=== PATIENT | female | born 1970 | race Caucasian/White ===

== ENCOUNTER 2016-10-02 06:20 | Day surgery (SDC) | payer BC ==
[~2016-10-02 06:20] MED LIST: LIDOCAINE W/ SODIUM BICARB 0.5 ML SYR ONE; Lactated Ringers 2,000 ML PRIMARY IV ONE; Sodium Chloride 0.9% 100 ML IV ONE
[2016-10-02 06:37] LABS: BILIRUBIN,URINE NEGATIVE (NEG); COLOR,URINE YELLOW; GLUCOSE, URINE (UA) NEGATIVE (NEG); NITRATE,URINE NEGATIVE (NEG); OCCULT BLOOD,URINE Trace-intact (NEG); PROTEIN,URINE 30 mg/dl (NEG); UROBILINOGEN,URINE 0.2 EU/dL (0.2)
[2016-10-02 06:39] LABS: CLARITY,URINE CLEAR (CLEAR); URINE SAMPLE TYPE CLEAN CATCH URINE
[2016-10-02 06:43] LABS: BACTERIA,URINE FEW; SQUAMOUS EPITHELIAL CELL,UR FEW
[2016-10-02] MEDS ORDERED: BUPIVACAINE 0.25% W/ EPI - 10 ML VIAL ONE (06:49)
[2016-10-02 06:56] LABS: HEMATOCRIT 36.9 % (37.0-47.0); HEMOGLOBIN 11.3 g/dL (12.0-16.0)
[2016-10-02] MEDS ORDERED: LIDOCAINE MPF 2% - 5 ML (20 MG/1 ML) ONE (07:04)
[2016-10-02] MEDS ORDERED: ROCURONIUM 10 MG/1 ML - 5 ML VIAL IVP ONE (07:05)
[2016-10-02] MEDS ORDERED: MIDAZOLAM 5 MG/1 ML ONE (07:05)
[2016-10-02] MEDS ORDERED: KETAMINE 100 MG/1 ML - 5 ML ONE (07:05)
[2016-10-02] MEDS ORDERED: fentaNYL Inj 250 MCG/5 ML VIAL ONE (07:05)
[2016-10-02] MEDS ORDERED: ONDANSETRON 4 MG/2 ML VIAL ONE (07:34)
[2016-10-02] MEDS ORDERED: SCOPOLAMINE HYDROBROMIDE 1.5 MG - 1 EACH PATCH TRANSDERM ONE (07:34)
[2016-10-02] MEDS ORDERED: DEXAMETHASONE PF 10 MG/1 ML VIAL ONE (07:35)
[2016-10-02] MEDS ORDERED: Acetaminophen 1000mg Inj 100 ML IV ONE (07:35)
[2016-10-02] MEDS ORDERED: SUFENTANIL 50 MCG/1 ML ONE (08:15)
[2016-10-02] MEDS ORDERED: KETOROLAC 30 MG/1 ML VIAL ONE (08:29)
[2016-10-02] MEDS: Opium-Belladonna 60-16.2mg 1 EACH SUPP.RECT RECTAL ONE ×2 (08:41→09:03)
[2016-10-02] MEDS: LIDOCAINE HCL 2 % 10 ML JELLY URO-JECT TOPICAL ONE ×2 (08:41→09:06)
[2016-10-02] MEDS ORDERED: SUGAMMADEX SODIUM 200 MG/2 ML VIAL IV ONE (08:53)
[2016-10-02] MEDS ORDERED: KETOROLAC 30 MG/1 ML VIAL IVP PRN (09:27)
[2016-10-02] MEDS ORDERED: IBUPROFEN 800 MG TABLET PO PRN (09:27)
[2016-10-02] MEDS ORDERED: oxyCODONE IR Tab 5 MG TAB PO PRN (09:27)
[2016-10-02] MEDS ORDERED: Ondansetron ODT Tab 8 MG TAB PO PRN (09:27)
[2016-10-02] MEDS ORDERED: NORMAL SALINE 10 ML SYRINGE FLUSH IVP PRN ×2 (09:27→09:46)
--- NOTE | 2016-10-02 09:38 | OB.OP.NOTE ---
Operative Report Surgeon: [facility] Director: German Beasley MD Anesthesia Type: General Anesthesia Provider: Aki Membreno CRNA Surgery Date: 10/02/16 Preoperative Diagnosis: MMR/Dysmenorrhea Postoperative Diagnosis: Same Procedure: da Efrain Hysterectomy/BSO Estimated Blood Loss (mL): 200 Fluids: 2100 ml Complications: None Findings at Surgery: Slightly enlarged uterus. Normal tubes and ovaries. Normal liver edge, gall bladder, appendix, visualized portion of the bowel and pelvic peritoneum. At cysto, both ureters were seen to eject urine and the bladder was intact with no visible evidence of injury. There was no visible bowel injury. Indications for the Procedure: MMR/Dysmenorrhea. Description of Procedure: See dictated operative report. Plan: Routine post op care and discharge to home.
[2016-10-02] MEDS ORDERED: HYDROmorphone 2 MG/1 ML ONE (09:45)
[2016-10-02] MEDS ORDERED: Prochlorperazine Edisylate Inj 10mg/2ml vial IVP PRN (09:46)
[2016-10-02] MEDS ORDERED: Nalbuphine Inj 20 MG/ML Ampule IVP PRN (09:46)
[2016-10-02] MEDS ORDERED: HYDROmorphone 2 MG/1 ML IVP PRN (09:46)
[2016-10-02] MEDS ORDERED: Lactated Ringers 1,000 ML PRIMARY IV SCH (10:00)
[2016-10-02] MEDS ORDERED: oxyCODONE IR Tab 5 MG TAB PO ONE (10:33)
[2016-10-02] MEDS ORDERED: Prochlorperazine Edisylate Inj 10mg/2ml vial ONE (11:31)
[2016-10-02 13:56] VITALS: RESP 16
[2016-10-02 13:58] VITALS: TEMP 97
[2016-10-02] MEDS ORDERED: DOCUSATE 100 MG CAPSULE PO SCH (21:00)
== END 2016-10-02 12:20 | disposition home or self-care (01) ==
LOC: SDSC 06:20
PROVIDERS: ATTEND Obstetrics & Gynecology
DX: N92.1 Excessive and frequent menstruation with irregular cycle (principal); N94.6 Dysmenorrhea, unspecified
CPT/HCPCS: 58552; 81001; 84703; 85014; 85018; J0131; J0694; J1885; J2704; J3010; J0780; J1100; J1170; J2001; J2250; J2405; J3490; J7050; J7120